=== PATIENT | male | born 1935 | race African-American/Black ===

== ENCOUNTER 2023-08-10 11:54 | Inpatient (IN) | payer OTHER, MEDICARE ==
[~2023-08-10] VITALS: Ht 188 cm; Wt 79.6 kg
[2023-08-10 11:56] VITALS: O2SAT 100
[2023-08-10 12:39] LABS: BASOPHILS % 1.2 % (0.0-2.0); EOSINOPHILS % 4.3 % (0.0-5.0); HEMATOCRIT. 32.1 % (42.0-52.0); HEMOGLOBIN. 10.5 g/dL (14.0-18.0); LYMPHOCYTES % 39.2 % (20.0-50.0); MEAN CORPUSCULAR HEMOGLOBIN 28.6 pg (28.0-32.0); MEAN CORPUSCULAR HGB CONC 32.6 g/dL (31.0-37.0); MEAN CORPUSCULAR VOLUME 87.7 fL (80.0-94.0); MEAN PLATELET VOLUME 8.3 fl (7.4-10.4); MONOCYTES % 8.8 % (2.0-8.0); NEUTROPHILS % 46.5 % (40.0-76.0); PLATELET 147 x1000/uL (130-400); RED BLOOD CELL COUNT 3.66 mill/uL (4.7-6.1); RED CELL DISTRIBUTION WIDTH 15.7 % (11.6-14.6); WHITE BLOOD COUNT 6.7 x1000/uL (4.5-11.0)
[2023-08-10] MEDS: SODIUM CHLORIDE 0.9% 1,000 ML IV ONE (12:41)
[2023-08-10 12:52] LABS: ALANINE AMINOTRANSFERASE 15 IU/L (10-49); ALBUMIN 4.1 g/dL (3.2-4.8); ASPARTATE AMINOTRANSFERASE 30 IU/L (<34); BILIRUBIN TOTAL 1.4 mg/dL (0.1-1.0); CALCIUM 12.3 mg/dL (8.7-10.4); CARBON DIOXIDE 27 mEq/L (21-32); CHLORIDE 105 mEq/L (98-107); CREATININE 1.4 mg/dL (0.6-1.3); GLUCOSE 98 mg/dL (70-105); PROTEIN TOTAL 6.2 g/dL (6.0-8.3); SODIUM 143 mEq/L (136-145); UREA NITROGEN BLOOD 18 mg/dL (9-23)
[2023-08-10 12:58] LABS: POTASSIUM 2.8 mEq/L (3.5-5.1); TROPONIN I HIGH SENSITIVITY 125 ng/L (3.0-53)
[2023-08-10] MEDS: SODIUM CHLORIDE 0.9% 1000ML BAG (SEPSIS BOLUS) IV SCH (13:00)
[2023-08-10] MEDS: CEFTRIAXONE 2 G in DEXTROSE 5% WATER 50 ML IV SCH (13:15)
[2023-08-10] MEDS: POTASSIUM CHLORIDE 20MEQ TABLET SR PO NR (14:00)
[2023-08-10 14:17] LABS: INR 1.2; PROTHROMBIN TIME 12.4 sec (9.6-11.0)
[2023-08-10] MEDS: MAGNESIUM 1 G PREMIX 100 ML IV ONE (14:45)
[2023-08-10] MEDS: KCL 10MEQ/50ML PREMIX 50 ML IV NR (15:00)
[2023-08-10 17:02] LABS: TROPONIN I HIGH SENSITIVITY 130 ng/L (3.0-53)
[2023-08-10 18:42] LABS: CLARITY URINE CLEAR (CLEAR); COLOR URINE YELLOW (YELLOW); GLUCOSE URINE NEGATIVE (NEGATIVE); KETONES URINE 2+ (NEGATIVE); LEUKOCYTE ESTERASE URINE NEGATIVE (NEGATIVE); NITRITE URINE NEGATIVE (NEGATIVE); OCCULT BLOOD URINE NEGATIVE (NEGATIVE); PH URINE 5.5 (4.5-8.0); PROTEIN URINE TRACE (NEGATIVE); SPECIFIC GRAVITY URINE 1.016 (1.005-1.030)
[2023-08-10 19:28] LABS: HYALINE CASTS URINE 0-5 /lpf
[2023-08-10 19:29] LABS: BACTERIA URINE NONE SEEN; RBC URINE NONE SEEN /hpf (0-2); SQUAMOUS EPITHELIAL CELL URINE RARE /lpf (RARE/1+); WBC URINE NONE SEEN /hpf (0-2)
[2023-08-10] MEDS ORDERED: ACETAMINOPHEN 325MG TABLET PO PRN ×2 (19:30)
[2023-08-10] MEDS ORDERED: MAGNESIUM/ALUMINUM HYDROXIDE/SIMETHICONE 30ML UDC PO PRN (19:30)
[2023-08-10] MEDS ORDERED: GUAIFENESIN 200MG/10ML SUGAR FREE UDC PO PRN (19:30)
[2023-08-10] MEDS ORDERED: ONDANSETRON HCL 4MG/2ML INJ IV PRN (19:30)
[2023-08-10] MEDS ORDERED: IPRATROPIUM/ALBUTEROL 0.5-3(2.5)MG/3ML NEB NEB PRN (19:30)
[2023-08-10 20:33] LABS: POTASSIUM 3.1 mEq/L (3.5-5.1)
[2023-08-10 20:41] LABS: TROPONIN I HIGH SENSITIVITY 100 ng/L (3.0-53)
[2023-08-10 21:20] VITALS: BP 178/82; PULSE 90; RESP 19; TEMP 98.8
[2023-08-10] MEDS: CLONIDINE 0.1MG TABLET PO PRN (21:53)
[2023-08-10 22:00] VITALS: BP 178/82; PULSE 90; RESP 19; TEMP 98.8
[2023-08-11] VITALS (9 sets, daily range): BP systolic 138–183; BP diastolic 72–87; PULSE 82–101; RESP 12–19; TEMP 96.3–98.4
[2023-08-11 01:53] LABS: CREATINE KINASE MB FRACTION 2.1 ng/mL (0.5-3.6)
[2023-08-11] MEDS: LORAZEPAM 2MG/ML INJ IV PRN (07:50)
[2023-08-11 08:00] LABS: CREATINE KINASE MB FRACTION 1.7 ng/mL (0.5-3.6)
[2023-08-11] MEDS ORDERED: DEXTROSE 50% WATER 50ML SYRINGE IV PRN (08:00)
[2023-08-11 08:03] LABS: CALCIUM 11.3 mg/dL (8.7-10.4); CARBON DIOXIDE 28 mEq/L (21-32); CHLORIDE 107 mEq/L (98-107); CREATININE 1.2 mg/dL (0.6-1.3); GLUCOSE 118 mg/dL (70-105); PHOSPHORUS 1.9 mg/dL (2.5-4.9); POTASSIUM 3.3 mEq/L (3.5-5.1); SODIUM 143 mEq/L (136-145); T4 FREE 1.44 ng/dL (0.89-1.76); THYROID STIMULATING HORMONE 1.83 uIU/mL (0.55-4.78); UREA NITROGEN BLOOD 18 mg/dL (9-23)
[2023-08-11 08:09] LABS: EOSINOPHILS % 5.3 % (0.0-5.0); HEMATOCRIT. 29.5 % (42.0-52.0); HEMOGLOBIN. 10.1 g/dL (14.0-18.0); LYMPHOCYTES % 40.1 % (20.0-50.0); MEAN CORPUSCULAR HEMOGLOBIN 29.6 pg (28.0-32.0); MEAN CORPUSCULAR HGB CONC 34.3 g/dL (31.0-37.0); MEAN CORPUSCULAR VOLUME 86.4 fL (80.0-94.0); MEAN PLATELET VOLUME 8.5 fl (7.4-10.4); MONOCYTES % 7.7 % (2.0-8.0); NEUTROPHILS % 45.9 % (40.0-76.0); PLATELET 152 x1000/uL (130-400); RED BLOOD CELL COUNT 3.42 mill/uL (4.7-6.1); RED CELL DISTRIBUTION WIDTH 15.4 % (11.6-14.6); WHITE BLOOD COUNT 6.8 x1000/uL (4.5-11.0)
[2023-08-11] MEDS: LEVETIRACETAM 500MG PREMIX 100 ML IV NR (08:09)
[2023-08-11] MEDS ORDERED: LACT10SO3 PO (08:10)
[2023-08-11] MEDS ORDERED: ATEN-42 PO (08:10)
[2023-08-11] MEDS ORDERED: TERA1CAP54 PO (08:10)
[2023-08-11] MEDS ORDERED: GLIP10TA10 PO (08:10)
[2023-08-11] MEDS ORDERED: LISI-186 PO (08:10)
[2023-08-11] MEDS ORDERED: ATOR40TA70 PO (08:10)
[2023-08-11 08:27] LABS: HEPATITIS B SURFACE ANTIGEN NEGATIVE (Negative); HEPATITIS C AB NON REACTIVE (Neg) (Negative)
[2023-08-11] MEDS: LORAZEPAM 2MG/ML INJ IV ONE (09:02)
[2023-08-11 12:25] LABS: CREATINE KINASE MB FRACTION 1.1 ng/mL (0.5-3.6)
[2023-08-11] MEDS: BLOOD SUGAR DIAGNOSTIC STRIP TEST SCH (13:13)
[2023-08-11] MEDS: LEVETIRACETAM 500MG PREMIX 100 ML IV SCH (16:49)
[2023-08-11 18:59] LABS: VITAMIN B12 SERUM 1903 pg/mL (211-911)
[2023-08-11] MEDS: MAGNESIUM 2 G PREMIX 50 ML IV NR (21:57)
[2023-08-11] MEDS: HYDRALAZINE 20MG/ML VIAL IV NR (22:05)
[2023-08-12] VITALS (17 sets, daily range): BP systolic 130–174; BP diastolic 66–83; PULSE 95–120; RESP 17–54; TEMP 96.8–98.5
[2023-08-12] MEDS: POTASSIUM CHLORIDE INJ 40 MEQ in DEXT 5% WATER 250 ML IV NR (01:55)
[2023-08-12 06:06] LABS: ALANINE AMINOTRANSFERASE 11 IU/L (10-49); ALBUMIN 3.6 g/dL (3.2-4.8); ASPARTATE AMINOTRANSFERASE 24 IU/L (<34); BILIRUBIN TOTAL 1.1 mg/dL (0.1-1.0); CALCIUM 11.5 mg/dL (8.7-10.4); CARBON DIOXIDE 25 mEq/L (21-32); CHLORIDE 107 mEq/L (98-107); CREATININE 1.1 mg/dL (0.6-1.3); GLUCOSE 112 mg/dL (70-105); PHOSPHORUS 2.3 mg/dL (2.5-4.9); POTASSIUM 3.7 mEq/L (3.5-5.1); PROTEIN TOTAL 5.5 g/dL (6.0-8.3); SODIUM 146 mEq/L (136-145); UREA NITROGEN BLOOD 12 mg/dL (9-23)
[2023-08-12] MEDS: ENOXAPARIN 40MG/0.4ML SYR SUBCUT SCH (08:10)
[2023-08-12 08:39] LABS: BASOPHILS % 1.4 % (0.0-2.0); EOSINOPHILS % 2.8 % (0.0-5.0); HEMATOCRIT. 33.9 % (42.0-52.0); LYMPHOCYTES % 30.9 % (20.0-50.0); MEAN CORPUSCULAR HEMOGLOBIN 29.2 pg (28.0-32.0); MEAN CORPUSCULAR HGB CONC 32.6 g/dL (31.0-37.0); MEAN CORPUSCULAR VOLUME 89.5 fL (80.0-94.0); MONOCYTES % 11.2 % (2.0-8.0); NEUTROPHILS % 53.7 % (40.0-76.0); PLATELET 133 x1000/uL (130-400); RED BLOOD CELL COUNT 3.78 mill/uL (4.7-6.1); RED CELL DISTRIBUTION WIDTH 16.3 % (11.6-14.6); WHITE BLOOD COUNT 9.4 x1000/uL (4.5-11.0)
[2023-08-12] MEDS: METOPROLOL TARTRATE 25MG TABLET PO SCH (08:40)
[2023-08-12] MEDS: LORAZEPAM 2MG/ML INJ IV PRN (13:07)
[2023-08-12] MEDS: POTASSIUM PHOS,M-BASIC-D-BASIC 15 MMOL in DEXT 5% WATER 245 ML IV NR (20:57)
[2023-08-12] MEDS: SODIUM CHLORIDE 0.45% 1,000 ML IV SCH (20:58)
[2023-08-12] MEDS: LEVETIRACETAM 1,000 MG in SODIUM CHLORIDE 0.9% 100 ML IV SCH (21:02)
[2023-08-13] VITALS (22 sets, daily range): BP systolic 122–173; BP diastolic 55–84; PULSE 91–117; RESP 13–32; TEMP 96.6–98.8
[2023-08-13] MEDS: HYDRALAZINE 20MG/ML VIAL IV NR (02:12)
[2023-08-13 05:24] LABS: BG BASE EXCESS 2.4 mmol/L (-2.0-2.0); BG CARBOXYHEMOGLOBIN 0.3 % (0.5-1.5); BG DEOXYHEMOGLOBIN 2.4 % (0.0-5.0); BG FRACTION INSPIRED OXYGEN 28; BG HCO3 ACT 26.2 mmol/L (22.0-26.0); BG METHEMOGLOBIN 0.3 % (0.0-1.5); BG OXYGEN SATURATION 97.6 % (92.0-98.5); BG PCO2 37.5 mmHg (35.0-45.0); BG PH 7.462 (7.350-7.450); BG SAMPLE SITE RIGHT RADIAL; BG VENT MODE NASAL CANNULA
[2023-08-13 05:52] LABS: BASOPHILS % 1.3 % (0.0-2.0); EOSINOPHILS % 2.9 % (0.0-5.0); HEMOGLOBIN. 10.4 g/dL (14.0-18.0); LYMPHOCYTES % 30.2 % (20.0-50.0); MEAN CORPUSCULAR HEMOGLOBIN 30.1 pg (28.0-32.0); MEAN CORPUSCULAR HGB CONC 33.4 g/dL (31.0-37.0); MEAN CORPUSCULAR VOLUME 90.1 fL (80.0-94.0); MEAN PLATELET VOLUME 8.3 fl (7.4-10.4); MONOCYTES % 8.9 % (2.0-8.0); NEUTROPHILS % 56.7 % (40.0-76.0); PLATELET 136 x1000/uL (130-400); RED BLOOD CELL COUNT 3.44 mill/uL (4.7-6.1); RED CELL DISTRIBUTION WIDTH 15.8 % (11.6-14.6); WHITE BLOOD COUNT 7.7 x1000/uL (4.5-11.0)
[2023-08-13 06:16] LABS: ALANINE AMINOTRANSFERASE 10 IU/L (10-49); ALBUMIN 3.7 g/dL (3.2-4.8); ASPARTATE AMINOTRANSFERASE 24 IU/L (<34); BILIRUBIN TOTAL 1.2 mg/dL (0.1-1.0); CALCIUM 11.2 mg/dL (8.7-10.4); CARBON DIOXIDE 28 mEq/L (21-32); CHLORIDE 108 mEq/L (98-107); CREATININE 1.1 mg/dL (0.6-1.3); GLUCOSE 107 mg/dL (70-105); PHOSPHORUS 3.2 mg/dL (2.5-4.9); POTASSIUM 3.6 mEq/L (3.5-5.1); PROTEIN TOTAL 5.5 g/dL (6.0-8.3); SODIUM 146 mEq/L (136-145); UREA NITROGEN BLOOD 13 mg/dL (9-23)
[2023-08-13] MEDS: MAGNESIUM 2 G PREMIX 50 ML IV NR (10:48)
[2023-08-13] MEDS: DEXT 5%/0.45% NACL 1000ML 1,000 ML IV SCH (18:55)
[2023-08-13] MEDS: PHENYTOIN SODIUM 100MG/2ML VIAL IV SCH (22:00)
[2023-08-14 00:50] VITALS: BP 146/66; PULSE 89; RESP 19; TEMP 97.3
[2023-08-14 04:00] VITALS: BP 150/63; PULSE 99; RESP 19; TEMP 97.1
[2023-08-14 08:00] VITALS: BP 166/74; PULSE 111; RESP 20; TEMP 96.9
[2023-08-14] MEDS: THIAMINE HCL 100MG TABLET NG SCH (09:00)
[2023-08-14] MEDS: LISINOPRIL 5MG TABLET PO SCH (09:00)
[2023-08-14] MEDS: LEVETIRACETAM 1,500 MG in SODIUM CHLORIDE 0.9% 100 ML IV SCH (09:49)
[2023-08-14] MEDS: HYDRALAZINE 20MG/ML VIAL IV PRN (11:03)
[2023-08-14 12:00] VITALS: BP 150/68; PULSE 116; RESP 20; TEMP 96.9
[2023-08-14 16:00] VITALS: BP 136/57; PULSE 118; RESP 20; TEMP 96.9
[2023-08-14 19:08] LABS: BASOPHILS % 0.8 % (0.0-2.0); EOSINOPHILS % 4.3 % (0.0-5.0); HEMATOCRIT. 29.1 % (42.0-52.0); HEMOGLOBIN. 9.5 g/dL (14.0-18.0); MEAN CORPUSCULAR HEMOGLOBIN 28.8 pg (28.0-32.0); MEAN CORPUSCULAR HGB CONC 32.5 g/dL (31.0-37.0); MEAN CORPUSCULAR VOLUME 88.5 fL (80.0-94.0); MEAN PLATELET VOLUME 7.7 fl (7.4-10.4); MONOCYTES % 7.4 % (2.0-8.0); NEUTROPHILS % 49.5 % (40.0-76.0); PLATELET 129 x1000/uL (130-400); RED BLOOD CELL COUNT 3.29 mill/uL (4.7-6.1); RED CELL DISTRIBUTION WIDTH 15.5 % (11.6-14.6); WHITE BLOOD COUNT 5.8 x1000/uL (4.5-11.0)
[2023-08-14 19:30] LABS: CALCIUM 10.4 mg/dL (8.7-10.4); CARBON DIOXIDE 31 mEq/L (21-32); CHLORIDE 108 mEq/L (98-107); GLUCOSE 134 mg/dL (70-105); IRON 25 ug/dL (65-175); POTASSIUM 3.3 mEq/L (3.5-5.1); SODIUM 143 mEq/L (136-145); TOTAL IRON BINDING CAPACITY 189 ug/dl (250-425); UREA NITROGEN BLOOD 16 mg/dL (9-23)
[2023-08-14 19:31] LABS: FOLIC ACID (FOLATE) SERUM 14.59 ng/mL (>5.38)
[2023-08-14 19:36] LABS: TROPONIN I HIGH SENSITIVITY 60 ng/L (3.0-53)
[2023-08-14 20:00] VITALS: BP 138/63; PULSE 103; RESP 17; TEMP 96.7
[2023-08-14] MEDS: METOPROLOL TARTRATE 50MG TABLET PO SCH (21:04)
[2023-08-14] MEDS: PANTOPRAZOLE SODIUM 40 MG/VIAL IV SCH (21:05)
[2023-08-15] VITALS: BP 146/56; PULSE 86; RESP 19; TEMP 98.2
[2023-08-15 04:00] VITALS: BP 151/64; PULSE 95; RESP 20; TEMP 98.1
[2023-08-15 07:50] LABS: BASOPHILS % 0.8 % (0.0-2.0); EOSINOPHILS % 3.8 % (0.0-5.0); HEMOGLOBIN. 9.4 g/dL (14.0-18.0); LYMPHOCYTES % 34.5 % (20.0-50.0); MEAN CORPUSCULAR HEMOGLOBIN 29.4 pg (28.0-32.0); MEAN CORPUSCULAR HGB CONC 33.4 g/dL (31.0-37.0); MEAN CORPUSCULAR VOLUME 88.1 fL (80.0-94.0); MEAN PLATELET VOLUME 7.8 fl (7.4-10.4); MONOCYTES % 7.7 % (2.0-8.0); NEUTROPHILS % 53.2 % (40.0-76.0); PLATELET 127 x1000/uL (130-400); RED BLOOD CELL COUNT 3.18 mill/uL (4.7-6.1); RED CELL DISTRIBUTION WIDTH 15.5 % (11.6-14.6); WHITE BLOOD COUNT 6.8 x1000/uL (4.5-11.0)
[2023-08-15 08:00] VITALS: BP 169/74; PULSE 116; RESP 20; TEMP 97.2
[2023-08-15 08:10] LABS: CARBON DIOXIDE 30 mEq/L (21-32); CHLORIDE 108 mEq/L (98-107); CREATININE 0.9 mg/dL (0.6-1.3); GLUCOSE 142 mg/dL (70-105); POTASSIUM 3.3 mEq/L (3.5-5.1); SODIUM 145 mEq/L (136-145); UREA NITROGEN BLOOD 16 mg/dL (9-23)
[2023-08-15 12:00] VITALS: BP 166/69; PULSE 97; RESP 20; TEMP 96.9
[2023-08-15] MEDS ORDERED: POTASSIUM CHLORIDE INJ 40 MEQ in DEXT 5% WATER 250 ML IV ONE (12:45)
[2023-08-15] MEDS: KCL 20MEQ/100ML X 2 FOR TOTAL KCL 40MEQ/200ML IV SCH (14:08)
[2023-08-15 16:00] VITALS: BP 142/56; PULSE 96; RESP 18; TEMP 97
[2023-08-15 20:26] VITALS: BP 179/40; PULSE 100; RESP 20; TEMP 97.1
[2023-08-16] VITALS: BP 146/59; PULSE 89; RESP 16; TEMP 97.3
== END 2023-08-16 01:45 | disposition short-term general hospital (02) | DRG 280 ==
LOC: ER 13:08 → 7EST 18:38 → SUPCPDRO 19:16 → 5EST 08-11 10:10 → 7WST 08-13 15:20
PROVIDERS: ADMIT Internal Medicine; ATTEND Internal Medicine
PROC: 4A00X4Z Measurement of Central Nervous Electrical Activity, External Approach (ICD-10-PCS; principal; 2023-08-13)
DX: I21.3 ST elevation (STEMI) myocardial infarction of unspecified site (principal); J96.01 Acute respiratory failure with hypoxia; E87.0 Hyperosmolality and hypernatremia; E87.20 Acidosis, unspecified; G93.40 Encephalopathy, unspecified; I21.4 Non-ST elevation (NSTEMI) myocardial infarction; I10 Essential (primary) hypertension; Z20.822 Contact with and (suspected) exposure to COVID-19; G25.3 Myoclonus; E87.6 Hypokalemia; R29.6 Repeated falls; E80.6 Other disorders of bilirubin metabolism; E83.42 Hypomagnesemia; E83.52 Hypercalcemia; E83.39 Other disorders of phosphorus metabolism; Z91.81 History of falling
CPT/HCPCS: 36415; 36600; 70551; 71045; 80048; 80053; 81003; 82330; 82375; 82378; 82550; 82553; 82607; 82728; 82746; 82805; 82962; 83036; 83540; 83550; 83605; 83735; 83880; 83970; 84100; 84132; 84145; 84439; 84443; 84484; 85025; 85044; 86705; 87340; 87426; 93005; 93306; 93880; 95816; 99291; C9113; J0360; J0696; J1165; J1650; J1953; J2060; J3475; J3480; J3490; J7030; J7050; J7060